=== PATIENT | male | born 1955 | race Caucasian/White ===

== ENCOUNTER 2021-10-03 17:01 | Emergency (ER) | payer MEDICARE, OTHER ==
[2021-10-03 17:48] LABS: HEMOGLOBIN 14.3 gm/dl (14.0-17.5); RED BLOOD COUNT 4.71 M/UL (4.20-5.50); WHITE BLOOD COUNT 6.9 K/UL (4.5-11.0)
[2021-10-03 18:09] LABS: BUN/CREATININE RATIO 17 (0-10)
== END 2021-10-04 00:36 | disposition short-term general hospital (02) ==
LOC: ER1 17:01
PROVIDERS: Family Medicine
DX: I63.9 Cerebral infarction, unspecified (principal); I10 Essential (primary) hypertension
CPT/HCPCS: 70450; 70496; 70498; 71045; 80053; 81001; 82550; 82553; 83735; 83874; 84484; 85025; 85610; 93005; 96374; 99284; J0360; Q9967